=== PATIENT | male | born 1960 | race Caucasian/White ===

== ENCOUNTER 2019-05-25 14:46 | Emergency (ER) | payer BC ==
[~2019-05-25] VITALS: Ht 182.9 cm; Wt 88.5 kg
== END 2019-05-25 17:22 | disposition short-term general hospital (02) ==
LOC: ED 14:46
DX: G31.84 Mild cognitive impairment of uncertain or unknown etiology (principal)
CPT/HCPCS: 70450; 80053; 84484; 85025; 99285-25